=== PATIENT | male | born 1960 | race Caucasian/White ===

== ENCOUNTER 2018-04-13 18:19 | Emergency (ER) | payer OTHER ==
[~2018-04-13] VITALS: Ht 172.7 cm; Wt 97.5 kg
[2018-04-13 18:27] VITALS: BP 152/79
--- NOTE | 2018-04-13 18:35 | NUR ---
er md huertas in triage seeing patient
--- NOTE | 2018-04-13 18:36 | NUR ---
carlos melendez in [facility] as well
--- NOTE | 2018-04-13 18:43 | NUR ---
PT TAKEN BY WHEELCHAIR TO BED 9
[2018-04-13] MEDS ORDERED: NACL 0.9% 1,000 ML IV ONE (18:50)
--- NOTE | 2018-04-13 18:50 | NUR ---
PT BIB DAUGHTER FOR FACIAL NUMBNESS AND AIN WITH INCREASED CONFUSION SINCE LAST NIGHT. PT IS AXO X4, BUT THOUGHT PROCESS SLOWER THAN NORMAL PER DAUGHTER. 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 PT WITH EQUAL SAMPLE WRAPPER/PUSHES, FACIAL SYMMETRY. PT HAS SLURRED SPEACH, BUT ABLE TO ANSWER QUESTIONS QUICKLY, ACCURATELY, AND IN FULL SENTENCES. PER DAUGHTER, PTS SPEACH IS NORMAL FOR HIS BASELINE. PT PLACED ON ALL MONITORS, VS WNL. DR EBNÍTEZ AT BEDSIDE TO EVAL PT.
--- NOTE | 2018-04-13 19:00 | NUR ---
LAB AT BEDSIDE
--- NOTE | 2018-04-13 19:05 | NUR ---
PT WENT TO CT
--- NOTE | 2018-04-13 19:05 | NUR ---
REPORT GIVEN TO MARQUIS OWEN
[2018-04-13 19:17] LABS: BASOPHILS % (AUTO) 0.3 % (0.0-2.0); EOSINOPHILS # (AUTO) 0.3 K/uL (0-0.4); HEMATOCRIT 45.9 % (36-52); HEMOGLOBIN 15.7 g/dL (12.0-18.0); LYMPHOCYTES # (AUTO) 1.9 K/uL (2.0-11.5); LYMPHOCYTES % (AUTO) 21.3 % (20.5-51.1); MEAN CORPUSCULAR HEMOGLOBIN 30 pg (27-31); MEAN CORPUSCULAR HGB CONC 34 g/dL (33-37); MEAN CORPUSCULAR VOLUME 86.7 fL (80-94); MONOCYTES # (AUTO) 0.9 K/uL (0.8-1.0); MONOCYTES % (AUTO) 10.7 % (1.7-9.3); NEUTROPHILS # (AUTO) 5.7 K/uL (1.8-7.7); NEUTROPHILS % (AUTO) 64.7 % (42.2-75.2); PLATELET COUNT (AUTO) 218 K/uL (140-450); RED BLOOD CELL COUNT(AUTO) 5.29 MIL/uL (4.20-6.10); WHITE BLOOD COUNT (AUTO) 8.8 K/uL (4.8-10.8)
--- NOTE | 2018-04-13 19:20 | NUR ---
PT RETURN FROM RADIOLOGY
--- NOTE | 2018-04-13 19:21 | NUR ---
pt back from ct via bed with park maintenance technician
--- NOTE | 2018-04-13 19:21 | NUR ---
PT BACK FROM CT
[2018-04-13 19:30] LABS: ANION GAP 10.9 (8-16); POTASSIUM 3.9 mmol/L (3.5-5.1)
[2018-04-13 19:35] LABS: ALBUMIN 3.6 g/dL (3.4-5.0); TOTAL BILIRUBIN 0.3 mg/dL (0.0-1.0)
--- NOTE | 2018-04-13 19:45 | NUR ---
PATIENT PRESENTS TO ED WITH PT C/O NUMBNESS AND TINGLING TO THE TONGUE AND FACE. C/O OF MORGAN 10/10 PAIN WHEN FIRST ASSESSED. PT HAS SLURRED SPEECH WHEN ASSESSED. FACE SYMMETRY WHEN SMILE AND IS ABLE TO MOVE TONGUE LEFT TO RIGHT. PEERLA. A/O X4. FULL ASSIST. HX OF CVA. DENIES ANY OTHER TYPE OF PAIN ON THE BODY EXCEPT FOR THE HEADACHE . DENIES N/V/D; SKIN IS PINK/WARM/DRY;EVEN AND STEADY GAIT; LUNGS CLEAR BL; HR EVEN AND REGULAR; PT DENIES ANY FEVER, CP, SOB, OR COUGH AT THIS TIME; PATIENT STATES PAIN OF 7/10 AT THIS TIME; VSS; PATIENT POSITIONED FOR COMFORT; HOB ELEVATED; BEDRAILS UP X2; BED DOWN. ER MD MADE AWARE OF PT STATUS.
[2018-04-13 20:07] LABS: PROTHROMBIN TIME 10.2 secs (10.8-13.4)
[2018-04-13 20:54] LABS: APPEARANCE,URINE CLEAR (CLEAR); BILIRUBIN,URINE NEGATIVE (NEGATIVE); BLOOD, URINE NEGATIVE (NEGATIVE); COLOR,URINE YELLOW (YELLOW); LEUKOCYTE ESTERASE ,URINE NEGATIVE (NEGATIVE); NITRITE, URINE NEGATIVE (NEGATIVE); UGLUCOSE NEGATIVE (NEGATIVE)
--- NOTE | 2018-04-13 20:56 | NUR ---
Dr. Michelle evaluating patient at bedside.
--- NOTE | 2018-04-13 21:25 | NUR ---
PATIENT IS RESTING AND STATES HE IS NO LONGER IN PAIN
[2018-04-13 23:20] VITALS: BP 142/80
--- NOTE | 2018-04-14 00:05 | NUR ---
Patient discharged with v/s stable. Written and verbal after care instructions given and explained. Patient alert, oriented and verbalized understanding of instructions. wheelchaired with family to car. All questions addressed prior to discharge. ID band removed. Patient advised to follow up with PMD. Opportunity to ask questions provided and answered.
== END 2018-04-14 00:05 | disposition home or self-care (01) ==
LOC: MED 18:19
DX: R42 Dizziness and giddiness (principal); E11.9 Type 2 diabetes mellitus without complications; I10 Essential (primary) hypertension; E78.00 Pure hypercholesterolemia, unspecified; E78.5 Hyperlipidemia, unspecified; Z86.73 Personal history of transient ischemic attack (TIA), and cerebral infarction without residual deficits
CPT/HCPCS: 36415; 70450; 71045; 80053; 81003; 83605; 83880; 84484; 85025; 85610; 85730; 87040; 87086; 93005; 96360; 96361; 99285; J7030; Q0092

== ENCOUNTER 2019-05-20 10:54 | Emergency (ER) | payer OTHER ==
[~2019-05-20] VITALS: Ht 172.7 cm; Wt 105.7 kg
[~2019-05-20 10:54] MED LIST: ACET-2619 PO; DABI150C PO; DONE5TAB6 PO; LORA10TA19 PO; METO25TE2 PO; ORE25 PO
[2019-05-20 11:03] VITALS: BP 158/115
--- NOTE | 2019-05-20 11:09 | NUR ---
PT TO LOBBY VIA WHEELCHAIR, W/ DAUGHTER, DAUGHTER TO GET MEDICATIONS FROM CAR.
--- NOTE | 2019-05-20 11:18 | NUR ---
PT TO ER BED 5
[2019-05-20] MEDS ORDERED: NACL 0.9% 500 ML IV ONE (11:31)
[2019-05-20] MEDS ORDERED: ONDANSETRON 4 MG/2 ML VIAL IVP ONE (11:35)
--- NOTE | 2019-05-20 11:45 | NUR ---
BIB DAUGHTER C/O VOMITING AND NAUSEA SINCE LAST NIGHT, NO BLOOD IN EMESIS OR DIARRHEA, PT STATES HE FELL FROM WHEELCHAIR YESTERDAY NO LOC , RT KNEE PAIN. SKIN IS PINK/WARM/DRY; AAOX4 WITH EVEN AND STEADY GAIT; PT DENIES ANY FEVER, CP, SOB, OR COUGH AT THIS TIME; PATIENT STATES PAIN OF 4/10 AT THIS TIME; VSS; PATIENT POSITIONED FOR COMFORT; HOB ELEVATED; BEDRAILS UP X2; BED DOWN. ER MD MADE AWARE OF PT STATUS.
--- NOTE | 2019-05-20 11:55 | NUR ---
Patient returned from CT scan. RN re-evaluating patient at bedside.
[2019-05-20 12:18] LABS: BASOPHILS % (AUTO) 0.2 % (0.0-2.0); EOSINOPHILS % (AUTO) 0.4 % (0.0-4.0); HEMATOCRIT 44.3 % (36-52); HEMOGLOBIN 14.8 g/dL (12.0-18.0); LYMPHOCYTES % (AUTO) 8.1 % (20.5-51.1); MEAN CORPUSCULAR HEMOGLOBIN 28 pg (27-31); MEAN CORPUSCULAR HGB CONC 34 g/dL (33-37); MONOCYTES % (AUTO) 7.5 % (1.7-9.3); NEUTROPHILS # (AUTO) 10.8 K/uL (1.8-7.7); NEUTROPHILS % (AUTO) 83.8 % (42.2-75.2); PLATELET COUNT (AUTO) 216 K/uL (140-450); RED BLOOD CELL COUNT(AUTO) 5.28 MIL/uL (4.20-6.10); RED CELL DISTRIBUTION WIDTH 14.7 % (11.6-13.7); WHITE BLOOD COUNT (AUTO) 12.9 K/uL (4.8-10.8)
[2019-05-20 12:32] LABS: ANION GAP 10.6 (8-16); CREATININE 1.1 mg/dL (0.7-1.3); POTASSIUM 3.6 mmol/L (3.5-5.1)
[2019-05-20 12:37] LABS: ALBUMIN 3.5 g/dL (3.4-5.0); TOTAL BILIRUBIN 0.5 mg/dL (0.0-1.0)
[2019-05-20 15:48] VITALS: BP 160/77
--- NOTE | 2019-05-20 15:48 | NUR ---
Patient discharged with v/s stable. Written and verbal after care instructions given and explained. Patient alert, oriented and verbalized understanding of instructions. Wheel Chair Assisted with by daughter. All questions addressed prior to discharge. ID band removed. Patient advised to follow up with PMD. Rx of Zofran given. Patient educated on indication of medication including possible reaction and side effects. Opportunity to ask questions provided and answered.
== END 2019-05-20 15:48 | disposition home or self-care (01) ==
LOC: MED 10:54
DX: R11.10 Vomiting, unspecified (principal); M25.561 Pain in right knee; R47.1 Dysarthria and anarthria; E11.9 Type 2 diabetes mellitus without complications; I10 Essential (primary) hypertension; Z86.73 Personal history of transient ischemic attack (TIA), and cerebral infarction without residual deficits; Z79.899 Other long term (current) drug therapy; W07.XXXA Fall from chair, initial encounter; Y93.89 Activity, other specified; Y92.89 Other specified places as the place of occurrence of the external cause; Y99.8 Other external cause status
CPT/HCPCS: 36415; 70450; 73562; 74176; 80053; 83690; 85025; 96361; 96374; 99284; J2405; J7030; Q0092